=== PATIENT | female | born 1990 | race Caucasian/White ===

== ENCOUNTER → 2018-02-17 12:55 | Outpatient (CLI) | payer OTHER, SELFPAY ==
--- NOTE | 2018-02-17 13:01 | RAD_ITS ---
STUDY: X-RAY - LEFT KNEE REASON FOR EXAM: Knee pain, no trauma. TECHNIQUE: 4 view(s) of the knee. COMPARISON: None. FINDINGS: Normal visualized distal femur. Normal visualized proximal tibia and fibula. Normal proximal tibiofibular articulation. Normal medial femorotibial compartment. Normal lateral femorotibial compartment. Normal patellofemoral articulation. The soft tissue structures are unremarkable. RAD/Knee 4 or More Views IMPRESSION: Normal x-ray examination of the left knee. Electronically Signed: Juan Diego Hobson MD at 13:34 EST Tel , Service support ,
== END ==
PROVIDERS: Referring Provider Orthopaedic Surgery; Visit Provider Orthopaedic Surgery
DX: M25.562 Pain in left knee (principal)
CPT/HCPCS: 73564

== ENCOUNTER 2018-03-14 16:30 | Outpatient (RCR) | payer OTHER, SELFPAY ==
--- NOTE | 2018-02-28 17:07 | HP.PTEVAL ---
Patient's Visit Information JEZ LIN is a 27 year old F referred to Physical Therapy by Roberta Nesbitt DO with a diagnosis of L knee pain. Date of Evaluation: 02/28/18 Physical Therapist: Artemio Rodriguez PT, - Visit Plan Frequency: 2x /Week Duration: 2 Weeks Plan: Work on a HEP for core strengthening and L LE stretching/strengthening - Subjective Subjective: Pt reports she has had L knee pain for 2 months. Pt reports she waited until she could affor to go to the doctor, which she did this past week. Pt reports he knee is sore from running so much in the past. Pt reports most of her pain is on the lateral aspect of her L knee. Pt reports s;he was told by her doctor that she had pain secondary to walking wrong. Pt reports she had xrays which revealed no signifigant findings. L knee does not pop, click, lockup, or give out. Occasional sleep difficulty secondary to pain. Pt reports her pain is worst with lunging activity. 1/10 at rest, 4/10 at worst - Pain L knee Pain Intensity (Out of 10): 1 Pain Intensity Range: 4 - Objective Neuro: L lateral knee is numb. All other B LE sensation is WNL to light touch. B patellar tendon reflex= 2/3. Palpation: Obvious crepitus with AROM. No obvious deformity. Significant pain on distal IT band in L knee. ROM: B knees 0-120 degrees. MMT: B LE's are grossly 4+/5 throughout. Spcial tests: pos 90/90 test, obers sign. No other orthopedic test are positive on this date. - Goals Goal 1:: Pt will be I with HEP in 3-4 visits Goal Time Frame: 2 Weeks - Rehabilitation Potential Physical Therapy Diagnosis: L knee pain and difficulty with running and lunging secondary to IT band syndrome Rehabilitation Potential: Good - Anticipated Interventions Patient/Client Instruction: Educate patient on: Condition, Plan of Care For the Purpose of:: To improve self management Therapeutic Exercise to Include: Strength training, Flexibilty training, Dynamic Lumbar Stabilization For the Purpose of:: To decrease pain, To improve muscle performance and motor function Thank you for the opportunity to evaluate your patient. For Medicare and Medicare HMO plans, please review the plan of care and approve it. It will need to be FAXED BACK to us at [phone] for Medicare purposes. Please let me know if there are questions or concerns regarding this plan of care. Physician Signature: Date:
--- NOTE | 2018-03-14 17:06 | HP.PTDCSUM ---
HP - PT D/C Summary It has been my pleasure to treat JEZ LIN under orders from Roberta Nesbitt DO, for the diagnosis of L knee pain for a total of 5 visit(s). Discharge Date: Please see the following information for a summary of their discharge status. - Subjective Subjective: Pt notes i dont really have pain today - Pain L knee Pain Intensity (Out of 10): 0 - Overall Improvement % Improvement: 50 - Objective Objective/Function: Pt julian progressions well without incidence. - Goals Goal 1:: Pt will be I with HEP in 3-4 visits Goal Progress: Goal Met - Plan Plan: Work on a HEP for core strengthening and L LE stretching/strengthening - D/C Information If there are questions or concerns regarding this patient's physical therapy, please feel free to call me at [phone]. Thank you for the referral of this patient. Sincerely, Artemio Rodriguez, PT,
--- NOTE | 2018-03-14 17:10 | HP.PTDCSUM_ITS ---
HP - PT D/C Summary It has been my pleasure to treat JEZ LIN under orders from Roberta Nesbitt DO, for the diagnosis of L knee pain for a total of 5 visit(s). Discharge Date: Please see the following information for a summary of their discharge status. - Subjective Subjective: Pt notes i dont really have pain today - Pain L knee Pain Intensity (Out of 10): 0 - Overall Improvement % Improvement: 50 - Objective Objective/Function: Pt julian progressions well without incidence. - Goals Goal 1:: Pt will be I with HEP in 3-4 visits Goal Progress: Goal Met - Plan Plan: Work on a HEP for core strengthening and L LE stretching/strengthening - D/C Information If there are questions or concerns regarding this patient's physical therapy, please feel free to call me at [phone]. Thank you for the referral of this patient. Sincerely, Artemio Rodriguez, PT,
--- OUTSIDE RECORDS SUMMARY | 2018-04-12 14:44 | XMS RPT_ITS ---
:1990 Author Organization [facility] Care Team Providers Name Role Phone MARTY DORSEY MD Attending Unavailable PHYSICIAN, NONE Primary Care Unavailable MARTY DORSEY MD Attending Unavailable PHYSICIAN, NONE Primary Care Unavailable Roberta Nesbitt Attending Unavailable Roberta Nesbitt Attending Unavailable Roberta Nesbitt Referring Unavailable Primay Care Physicia, No Primary Care Unavailable Roberta Nesbitt Attending Unavailable Roberta Nesbitt Referring Unavailable Primay Care Physicia, No Primary Care Unavailable PROBLEMS PROBLEMS DATE TYPE CONDITION / CODE ATTENDING STATUS SOURCE 03/15/2018 Unknown M25.562 - Pain in Laz, Active [place] left knee / [facility] M25.562(ICD-10) Hospital Repository 03/15/2018 Unknown R29.898 - Other Laz, Active Jesse symptoms and signs [facility] involving the Hospital musculoskeletal Repository system / R29.898(ICD-10) PROCEDURES PROCEDURES No Procedure Records FoundRESULTS RESULTS PT D/C SUMMARY (1) Observed: 03/14/2018 Status: F Source: [place] 5:10 PM [facility] REPOSITORY [facility] Physical [facility] [address] [place] [address] Fax REHABILITATION SERVICES DISCHARGE SUMMARY MR#: [id number] Acct: [id number] Name: JEZ LIN Rep #: [id number] : 1990 27 From: Artemio Rodriguez PT, ATC Referring Dr.: Roberta Nesbitt DO Status: REG RCR Insurance: IMT [facility] PACKAGE PLAN HP - PT D/C Summary It has been my pleasure to treat JEZ LIN under orders from Roberta Nesbitt DO, for the diagnosis of L knee pain for a total of 5 visit(s). Discharge Date: Please see the following information for a summary of their discharge status. - Subjective Subjective: Pt notes i dont really have pain today - Pain L knee Pain Intensity (Out of 10): 0 - Overall Improvement % Improvement: 50 - Objective Objective/Function: Pt julian progressions well without incidence. - Goals Goal 1:: Pt will be I with HEP in 3-4 visits Goal Progress: Goal Met - Plan Plan: Work on a HEP for core strengthening and L LE stretching/strengthening - D/C Information If there are questions or concerns regarding this patient's physical therapy, please feel free to call me at [phone]. Thank you for the referral of this patient. Sincerely, Artemio Rodriguez, PT, <Electronically signed by Artemio Rodriguez PT, ATC> 03/14/18 1710 CC: No Primary Care Physician; Roberta Nesbitt DO [facility] Signed INITAL EVALUATION (1) Observed: 02/28/2018 Status: F Source: [place] - PT 5:09 PM [facility] REPOSIT[facility] Physical [facility] [address] [place] [address] Fax REHABILITATION SERVICES INITIAL EVALUATION MR#: [id number] Acct: [id number] Name: JEZ LIN Rep #: [id number] : 1990 27 From: Artemio Rodriguez PT, ATC Referring Dr.: Roberta Nesbitt DO Status: REG RCR Insurance: IMT [facility] PACKAGE PLAN Patient's Visit Information JEZ LIN is a 27 year old F referred to Physical Therapy by Roberta Nesbitt DO with a diagnosis of L knee pain. Date of Evaluation: 02/28/18 Physical Therapist: Artemio Rodriguez PT, - Visit Plan Frequency: 2x /Week Duration: 2 Weeks Plan: Work on a HEP for core strengthening and L LE stretching/strengthening - Subjective Subjective: Pt reports she has had L knee pain for 2 months. Pt reports she waited until she could affor to go to the doctor, which she did this past week. Pt reports he knee is sore from running so much in the past. Pt reports most of her pain is on the lateral aspect of her L knee. Pt reports s;he was told by her doctor that she had pain secondary to walking wrong. Pt reports she had xrays which revealed no signifigant findings. L knee does not pop, click, lockup, or give out. Occasional sleep difficulty secondary to pain. Pt reports her pain is worst with lunging activity. 1/10 at rest, 4/10 at worst - Pain L knee Pain Intensity (Out of 10): 1 Pain Intensity Range: 4 - Objective Neuro: L lateral knee is numb. All other B LE sensation is WNL to light touch. B patellar tendon reflex= 2/3. Palpation: Obvious crepitus with AROM. No obvious deformity. Significant pain on distal IT band in L knee. ROM: B knees 0-120 degrees. MMT: B LE's are grossly 4+/5 throughout. Spcial tests: pos 90/90 test, obers sign. No other orthopedic test are positive on this date. - Goals Goal 1:: Pt will be I with HEP in 3-4 visits Goal Time Frame: 2 Weeks - Rehabilitation Potential Physical Therapy Diagnosis: L knee pain and difficulty with running and lunging secondary to IT band syndrome Rehabilitation Potential: Good - Anticipated Interventions Patient/Client Instruction: Educate patient on: Condition, Plan of Care For the Purpose of:: To improve self management Therapeutic Exercise to Include: Strength training, Flexibilty training, Dynamic Lumbar Stabilization For the Purpose of:: To decrease pain, To improve muscle performance and motor function Thank you for the opportunity to evaluate your patient. For Medicare and Medicare HMO plans, please review the plan of care and approve it. It will need to be FAXED BACK to us at [phone] for Medicare purposes. Please let me know if there are questions or concerns regarding this plan of care. Physician Signature: Date: <Electronically signed by Artemio Rodriguez PT, ATC> 02/28/18 1709 CC: No Primary Care Physician; Roberta Nesbitt DO [facility] Signed For Medicare only, by signing this I certify the plan of care. Physicians Signature Date ORTHOPEDIC VISIT Observed: 02/28/2018 Status: F Source: [place] REPORT 1:54 PM [facility] REPOSIT[facility] [address] [place] [address] OFFICE VISIT Date of Service: 02/17/18 MR#: [id number] Acct: [id number] Name: JEZ LIN Rep #: [id number] : 1990 Provider: Roberta Nesbitt DO Age/Sex: 27/F Location: [facility] Status: Signed Intake Intake Visit Reasons: LEFT KNEE Senior Director Insight Required: No Accompanied by: None Is patient in pain?: Yes (left knee) Pain scale (1-10): 1 Allergies acetaminophen [From Percocet] Adverse Reaction (Unknown, Verified 02/17/18 12:39) Vomiting oxycodone [From Percocet] Adverse Reaction (Unknown, Verified 02/17/18 12:39) Vomiting Medications lactobacillus combination no.4 3 billion cell capsule 3,000 mmu cells PO DAILY 02/17/18 [History Confirmed 02/17/18] levonorgestrel-ethinyl estradiol 0.1 mg-20 mcg tablet PO 56 Days #56 tab 02/17/18 [History Confirmed 02/17/18] multivitamin tablet 1 tab PO DAILY 02/17/18 [History Confirmed 02/17/18] PFSH Surgical History History of wisdom tooth extraction (Acute) Hx of removal of ovary (Acute) Family History Aunt Breast cancer Social History Smoking Status: Never smoker alcohol intake: current alcohol intake frequency: holidays/special occasions only Alcohol type: wine HPI LEFT KNEE: Details: JEZ LIN is a 27 year old F here today for left knee /lateral leg pain. Patient rates her pain as a 1/10 and describes more as a tingling feeling. Patient states her knee has been bothering her for awhile but about a month ago she noticed she was having trouble bending it as far as the other and it felt like a knife over her lateral thigh. States that her pain is at the bottom of her knee and does radiate up her thigh. States it is frequently numb over her lateral thigh. Patient notes that she feels like she has bugs crawling up her leg. Patient states that doing activities such as lunges or extreme bending make her pain worse. States that when she does not work out or works out too much it seems to make it worse, so she tries to mildly exercise her leg. Denies popping or clicking and swelling. Has not had xrays, mri, injections or PT. Denies any bowel, bladder issues, fevers or chills. Ortho Exam Left Knee Skin/Wound: Yes CDI Contralateral Normal: Yes Swelling: No Homans Sign: No Knee ROM: Yes ROM-Extension -20 to 0, Yes ROM-Flexion 0-140, Yes ROM-Passive Extension -10 to 0, Yes ROM-Passive Flexion 0-140 Stability: NML: Anterior Drawer, NML: Elver, NML: Valgus 0, NML: Valgus 30, NML: Varus 0, NML: Varus 30 KNEE: Decreased sensation over her lateral thigh. Negative SLR. No greater troch pain, no ITB pain. 5/5 hip, 5/5 ankle, 5/5 knee. Sym reflexes. Assessment AND Plan 1. Left knee pain M25.562 Plan either coming from her back or her lfcn. patient wears tight pants/ stretch pants under her regular pants. no back pain, no neurological deficits on exam. PT either way to start and will reassess at next visit. Obtained X-rays of patient's right knee. Personally reviewed x-rays. There is no obvious fracture, dislocation, or lucency noted. Xrays show a lateral tracking patella. Explained that she has irritated her lateral femoral cutaneous nerve. She should limit wearing 2 pairs of pants and not tighten her belt tight. Gave the patient a script for physical therapy due to quad atrophy. Follow up on an as needed basis or sooner if pain, swelling, numbness or associated symptoms, or concerns develop. All questions answered. Patient in agreement of plan. Orders Orders: Coding Level of Care Code Off vis,new,level 3 Diagnoses Left knee pain M25.562 02/28/18 1354 <Electronically signed by Roberta Nesbitt DO> Date Roberta Nesbitt DO Cosigncortes Signature: Date (if applicable) CC: KNEE 4 OR MORE Observed: 02/17/2018 Status: F Source: [place] VIEWS 1:01 PM [facility] REPOSITORY [facility] Imaging Services [address] [place] [address] [place] [address] Knee 4 or More Views MR#: [id number] Acct: [id number] Name: JEZ LIN Rep #: [id number] : 1990 F 27 From: Juan Diego Hobson MD PCP: Care Physician, No Primary Status: REG CLI Study: Knee 4 or More Views Date of Exam: 02/17/18 Exam# [id number] Ordering Dr: Roberta Nesbitt DO STUDY: X-RAY - LEFT KNEE REASON FOR EXAM: Knee pain, no trauma. TECHNIQUE: 4 view(s) of the knee. COMPARISON: None. FINDINGS: Normal visualized distal femur. Normal visualized proximal tibia and fibula. Normal proximal tibiofibular articulation. Normal medial femorotibial compartment. Normal lateral femorotibial compartment. Normal patellofemoral articulation. The soft tissue structures are unremarkable. RAD/Knee 4 or More Views IMPRESSION: Normal x-ray examination of the left knee. Electronically Signed: Juan Diego Hobson MD at 13:34 EST Tel , Service support , CC: No Primary Care Physician; Roberta Nesbitt DO Ripening Room Attendant: Signed CA125 Collected: 02/03/2018 Status: F Source: [place] 5:03 PM [facility] REPOSITORY TYPE CODE TESTS RESULT OUT OF RANGE REFERENCE UNITS LAB CA125(LOINC 2-35 U/mL ) CA 125 6 Performed By: #### CA125 #### [place] [address] CA125 Collected: 08/11/2017 Status: F Source: [place] [facility] 3:42 PM [facility] REPOSITORY TYPE CODE TESTS RESULT OUT OF RANGE REFERENCE UNITS LAB CA125(LOINC 2-35 U/mL ) CA 125 8 Performed By: #### CA125 #### [place] [id number] US PELVIS NON-OB Observed: 08/11/2017 Status: F Source: [place] W/TRANSVAGINAL 3:00 PM [facility] REPOSITORY ORIGINAL Ultrasound pelvis, transabdominal and transvaginal CLINICAL STATEMENT: PERSONAL HX OF MALIGNANT NEOPLASM OF OVARY, , follow-up COMPARISON: 01/05/2017 and 07/14/2016 FINDINGS: The uterus is normal in size and echogenicity 8.2 x 4.0 x 5.1 cm. It is retroflexed. No myometrial mass is seen. Endometrium is 5 mm in double wall thickness.. Right ovary: Surgically absent by history. Not visualized Left ovary: 3.5 x 3.4 x 3.2 cm. There is a 1.8 cm follicle in the ovary. Doppler shows blood flow in the ovary. There is no adnexal mass or pelvic free fluid. IMPRESSION: The right ovary is surgically absent by history. The structure reported as the right ovary on the ultrasound of 01/05/2017 was probably a loop of bowel. The left ovary is normal with a 1.8 cm follicle. Interpreted By: Gato Johnson MD Preliminary Report By: Gato Johnson MD Electronically Signed By: Gato Johnson MD Dictated Date: 08/11/2017 4:29:35 PM Prelim Date: 08/11/2017 4:29:35 PM Sign Date: 08/11/2017 4:31:30 PM ALLERGIES ALLERGIES DATE TYPE / CODE NAME / CODE REACTION SEVERITY SOURCE 02/17/2018 Drug oxycodone/F0 Vomiting Unknown [facility] Allergy/4160 [id number](RXN Hospital [address](SNOMED ORM) Repository CT) 02/17/2018 [address] [facility] Allergy/4160 n/[id number] [place] [address](SNOMED (RXNORM) Repository CT) ENCOUNTERS ENCOUNTERS ADMIT/DISCHARGE ACCOUNT NUMBER ADMITTING ENCOUNTER LOCATION SOURCE CLASS 03/14/2018/03/14/20 [id number] Ambulatory [address] ding:PT Repository 02/17/2018 [id number] Ambulatory [facility] ding:HPRAD Repository 02/17/2018/02/18/20 [id number] Ambulatory BMSBuilding: Jesse [address] [place] [address] Repository 02/03/2018/02/04/20 [id number] Ambulatory [address] ding:OLAB [facility] Repository 08/11/2017/08/12/19 [id number] Ambulatory BBuilding: [address] Repository PAYERS PAYERS ENCOUNTER GUARANTOR PAYER SUBSCRIBER SOURCE 03/14/2018 JEZ N [id number] Primary JEZ N BAERDOB: [place] Insurance:[id number] Number: Hospital [id number]: [id number] Repository [phone] (HP) Date:[id number] [address] [place] [id number]: 03/14/2018 Secondary JEZ N BAERDOB: [place] Insurance:[facility] PACKAGE [id number] [facility] Number: [facility] [id number] Repository Date:2018-02-21 03/14/2018 Tertiary NOT GIVENUNK [place] Insurance:SELF PAY [facility] Number: Effective Repository Date:2018-02-21 02/17/2018 JEZ N [id number] Primary JEZ N BAERDOB: [place] Insurance:[place] [id number] Number: Hospital [id number]: [phone] [id number] Repository [phone] (HP) Date:[id number] [address] [address]MZ: 02/17/2018 Secondary NOT GIVENUNK [place] Insurance:SELF PAY [facility] Number: Effective Repository Date:2018-02-17 02/17/2018 JEZ [id number] Primary NOT GIVENUNK [place] Insurance:SELF PAY [facility] [address]Kab: Number: Effective Repository Date:2018-02-17 (HP) 02/03/2018 JEZ N BAERDOB: Primary JEZ N BAERDOB: [facility] [id number] Insurance:AULTCARE [id number] [place] [id number] Number: 1 [place] Repository [place] [id number] [place] [address]~[place] [address] Date:2018-02-03Tel: [phone]) [email or web address]: [phone] [phone] Name:MISSION SYSTEMS ENGINEER Box (HP)Tel: [phone]) (HP)Tel: [phone], [place] [phone] (WP) [phone] (GQ) 15[address]CU: 08/11/2017 JEZ PEÑAB: Primary JEZ PEÑAB: [facility] Insurance:[facility] [id number] [place] [id number] Number: 1 [place] Repository [place] [id number] [place] [address]~[place] [address] Date:2017-08-05Tel: 330) @[email or web address]: [phone] [phone] Name:MISSION SYSTEMS ENGINEER Box (HP)Tel: (852) (HP)Tel: [phone], [place] [phone] (WP) [phone] (IA) [id number]:
== END 2018-03-14 19:00 | disposition home or self-care (01) ==
LOC: PT 16:30
PROVIDERS: Referring Provider Orthopaedic Surgery; Visit Provider Orthopaedic Surgery
DX: M25.562 Pain in left knee (principal); R29.898 Other symptoms and signs involving the musculoskeletal system
CPT/HCPCS: 97110; 97161; 97530